=== PATIENT | male | born 1975 | race Caucasian/White ===

== ENCOUNTER → 2018-06-07 09:05 | Outpatient (CLI) | payer OTHER, SELFPAY ==
--- NOTE | 2018-06-07 | DI.ECHO.S_ITS ---
[facility] +---------+ : : [address] : : : : [id number] : : : : Phone: [phone]+ Echocardiogram Report + + :Name: ALIE LIMA Study Date: 06/07/2018 Height: 67 in : :[facility] Weight: 186 lb : : Gender: Male BSA: 2.0 m2 : :: 1975 Age: 42 yrs BP: 140/70 mmHg: :Reason For Study: QTC : : Performed By: Chelsea Smith : :Referring: MARCY ZAVALETA : + + Interpretation Summary Patient has dextrocardia and situs inversus. 1) Normal left ventricular size, wall motion, and systolic function (EF 55- 60%). 2) Grossly, normal right ventricular size and function. 3) No significant valvular abnormalities. 4) No prior Echo available for cmparison. Procedure: A two-dimensional transthoracic echocardiogram with color flow and Doppler was performed. The study quality was technically adequate. There is no prior echocardiogram noted for this patient. The patient was in normal sinus rhythm during the exam. Left Ventricle: The left ventricle is normal in size, wall thickness, and systolic function without any focal wall motion abnormalities. The ejection fraction is estimated to be 55-60%. Diastolic parameters suggest probable normal left ventricular diastolic function and normal filling pressures. Right Ventricle: The right ventricle grossly appears normal in size with probable normal systolic function. Atria: The left atrial size is normal. Right atrial size is normal. Mitral Valve: The mitral valve is normal in structure and function. There is no mitral regurgitation noted. Aortic Valve: The aortic valve opens well. Aortic valve is not well visualized to know whether it is trileaflet. There is no aortic valve stenosis. No aortic regurgitation is present. Tricuspid Valve: The tricuspid valve is normal in structure and function. No tricuspid regurgitation. Pulmonic Valve: The pulmonic valve is not well seen, but is grossly normal. There is a trace or physiologic amount of pulmonic regurgitation. Great Vessels: The aortic root is normal size. The dimensions of the ascending aorta are normal. The aortic arch is normal in size. The IVC is of normal diameter and collapses greater than 50% with a sniff. This suggests a low right atrial pressure of 3 mm Hg. Pericardium/ Pleura There is no pericardial effusion. There is no pleural effusion. MMode/2D Measurements & Calculations LVIDd: 4.5 cm Ao root diam: 3.4 cm LVIDs: 3.2 cm Aortic Jxn: 2.7 cm FS: 29.4 % asc Aorta Diam: 2.9 cm EPSS: 0.83 cm Ao Arch Diam (Prox Trans): 2.8 cm IVSd: 0.92 cm LVPWd: 0.84 cm LV garibay. diameter/BSA (cm/m^2): 2.3 LV sys. diameter/BSA (cm/m^2): 1.6 LA dimension: 3.6 cm RA long axis: 4.4 cm LA A2 area: 17.0 cm2 RA area: 15.6 cm2 LA A4 area: 18.0 cm2 RA vol: 46.6 ml RA : 23.8 ml/m2 IVC diam: 1.2 cm RVDd major: 5.3 cm RVD1 (basal): 3.9 cm RVD2 (mid): 3.3 cm Doppler Measurements & Calculations Ao V2 max: 152.2 cm/sec MV E max wisam: 82.5 cm/sec Ao V2 mean: 94.0 cm/sec MV A max wisam: 61.5 cm/sec Ao max P.3 mmHg MV E/A: 1.3 Ao mean P.4 mmHg Med Peak E' Wisam: 8.8 cm/sec Ao V2 VTI: 31.8 cm E/E' med: 9.3 Lat Peak E' Wisam: 15.2 cm/sec E/E' lat: 5.4 E/e' average: 7.4 MV dec time: 0.22 sec MV P1/2t: 65.4 msec PA V2 max: 105.8 cm/sec MV P1/2t max wisam: 82.1 cm/sec PA V2 mean: 68.1 cm/sec MVA(P1/2t): 3.4 cm2 PA mean P.1 mmHg PA Accel Time: 0.15 sec Reading Physician:10:05 AM
== END ==
PROVIDERS: Visit Provider Physician Assistant
DX: I45.81 Long QT syndrome (principal); R00.2 Palpitations
CPT/HCPCS: 93306

== ENCOUNTER 2020-09-28 10:17 | Emergency (ER) | payer OTHER, SELFPAY ==
[2020-09-28 10:30] VITALS: BP 144/76; PULSE 77; RESP 14; TEMP 36.2; O2SAT 99; BMI 29.0
--- NOTE | 2020-09-28 11:25 | DI.RAD.S_ITS ---
PROCEDURE: XR LUMBAR SPINE 2-3V INDICATIONS: low back pain TECHNIQUE: 3 views of the lumbar spine were acquired. COMPARISON: None. FINDINGS: Bones: 5 [id number] vertebrae are present. There is normal bony alignment. No vertebral body compression fractures. No suspicious bony lesions. Degenerative changes are present noting [id number] foraminal narrowing at L4-5 and L5-S1. Soft tissues: Overlying bowel gas pattern is normal. No suspicious soft tissue calcifications. IMPRESSION: Degenerative changes as above. Dictated by: Stacey Guzman M.D. on 09/28/2020 at 11:44 Approved by: Stacey Guzman M.D. on 09/28/2020 at 11:46
--- NOTE | 2020-09-28 14:28 | ED.BACK ---
HPI - Back Pain/Injury General Chief Complaint: Back Pain/Injury Stated Complaint: Back pain Time Seen by Provider: 09/28/20 14:28 Source: patient Limitations: no limitations History of Present Illness HPI Narrative: This is a 45-year-old male comes to the emergency department complaint of low back pain. Patient states he had bent over this morning about 6:00 a.m. to put his socks when he felt sudden pain as he was sitting back up straight. Patient states a little bit more on the left but is on both sides. Depending on his positioning patient does sometimes have some tingling down his leg particularly on the left. He denies any weakness. No loss of bowel or bladder control. No fevers or chills. He has not had significant symptoms similar in the past but has had some very mild symptoms before. He denies any daily medications. He denies any prior back or other surgeries. He states he is allergic to potassium and no other medications. He does not have an exact primary care but gets [facility] medical care [facility] [employer] Related Data Previous Rx's Medication Instructions Recorded diazepam [Valium] 10 mg PO TID PRN #10 tab 09/28/20 meloxicam 7.5 mg PO BID PRN #20 tab 09/28/20 Allergies Allergy/AdvReac Type Severity Reaction Status Date / Time potassium Allergy Verified 09/28/20 10:33 Review of Systems Review of Systems ROS Unobtainable: All systems reviewed & are unremarkable except as noted in HPI and below Patient History Social History Smoking Status: Current every day smoker Smoking Status: Current every day smoker alcohol intake frequency: a few times a week Substance Use Type: marijuana Exam Narrative Exam Narrative: GENERAL: Alert and oriented x three, well-nourished male in moderate distress. Patient is lying on his left stated on during examination. HEENT: Head normocephalic, atraumatic, EOMI, pupils reactive, face symmetric, moist mucous membranes NECK: Supple, full range of motion CARDIOVASCULAR: Regular rate and rhythm without murmurs, rubs or gallops. RESPIRATORY: Breath sounds equal bilaterally, no wheezes rales or rhonchi. ABDOMEN: Soft, nontender. Normoactive bowel sounds all 4 quadrants. No guarding or rebound, rigidity, no mass : No CVA tenderness BACK: No cervical, thoracic or lumbar vertebral point tenderness, except L4-L5. Patient has decreased range of motion. Patient's gait is [antalgic/normal]. Rectal exam is deferred. Muscle strength is 5/5 in lower extremities, Dorsalis pedis and tibialis pulses are 2+ and lower extremities. Sensation is intact in the lower extremities. EXTREMITIES: Normal range of motion, no clubbing or edema. Neurovascularly intact NEUROLOGICAL: Cranial nerves II through XII grossly intact. Moving all extremities SKIN: Warm, dry, no petechiae, no rashes or lesions. Initial Vital Signs Initial Vital Signs: Vital Signs Temperature 97.2 F L 09/28/20 10:30 Pulse Rate 77 09/28/20 10:30 Respiratory Rate 14 09/28/20 10:30 Blood Pressure 144/76 H 09/28/20 10:30 Pulse Oximetry 99 09/28/20 10:30 Course Orders Ordered: ED Orders 09/28/20 11:25 XR LSPINE 2-3 views [XR lumbar spine 2-3V] Stat Discontinued Medications Diazepam (Diazepam 5 Mg Tablet) 10 mg PO NOW ONE Stop: 09/28/20 14:45 Last Admin: 09/28/20 15:05 Dose: 10 mg Documented by: CHIO Ketorolac Tromethamine (Ketorolac 30 Mg/Ml Vial) 30 mg IM NOW ONE Stop: 09/28/20 14:45 Last Admin: 09/28/20 15:05 Dose: 30 mg Documented by: CHIO Vital Signs Vital signs: Vital Signs - 8 hr 09/28/20 10:30 Temperature 97.2 F L Pulse Rate 77 Respiratory Rate 14 Blood Pressure 144/76 H Pulse Oximetry 99 MDM - Back Pain/Injury Imaging Data Lspine xray: Radiologist's Impression: [address] [id number] ReportSigned Patient: Con [address] [facility]#: [id number]: 1975Acct:[id number]/Sex: 45 / MDate of Service: 09/28/20Loc: EDAccession Number: [id number] Procedure: XR lumbar spine 2-3V Ordering Provider: Umm Hassan D.O. PROCEDURE: XR LUMBAR SPINE 2-3V INDICATIONS: low back pain TECHNIQUE: 3 views of the lumbar spine were acquired. COMPARISON: None. FINDINGS: Bones: 5 mlu-jss-kifujkz vertebrae are present. There is normal bony alignment. No vertebral body compression fractures. No suspicious bony lesions. Degenerative changes are present noting [id number] foraminal narrowing at L4-5 and L5-S1. Soft tissues: Overlying bowel gas pattern is normal. No suspicious soft tissue calcifications. IMPRESSION: Degenerative changes as above. Dictated by: Stacey Guzman M.D. on 09/28/2020 at 11:44 Approved by: Stacey Guzman M.D. on 09/28/2020 at 11:46 MDM Narrative Medical decision making narrative: 45-year-old male with low back pain with no red flag symptoms. Patient's x-ray shows degenerative changes but no other acute changes. Plan for pain control, follow up with primary care. Risk precautions were discussed. Discharge Plan Departure Patient Disposition: Home Clinical Impression: Low back pain Instructions: DI for Low Back Pain Activity Restrictions/Additional Instructions: Follow-up with your physician next week for recheck if your symptoms are not improving. Prescription to [facility] pharmacy. Take pain medication as prescribed. Take muscle relaxer every 8 hours as needed. This medication can make you sleepy do not drive, perform hazardous activities or make any major decisions while taking it. Please return for fevers, rapidly worsening or intractable back pain, new weakness, loss of sensation, inability to move your extremity, loss of bowel or bladder control, passing out or other new or concerning symptoms. Prescriptions: New meloxicam 7.5 mg tablet 7.5 mg PO BID PRN (Reason: pain) Qty: 20 RF: 0 diazepam [Valium] 10 mg tablet 10 mg PO TID PRN (Reason: muscle spasm) Qty: 10 RF: 0 Stand Alone Forms: Work Release Note
[2020-09-28] MEDS: KETOROLAC 30 MG/ML VIAL IM (15:05)
[2020-09-28] MEDS: diazePAM 5 MG TABLET 10 MG PO (15:05)
== END 2020-09-28 15:31 | disposition home or self-care (01) ==
PROVIDERS: Emergency Provider Emergency Medicine
DX: M54.5 Low back pain (principal)
CPT/HCPCS: 72100; 96372; 99283; 99284; J1885

== ENCOUNTER → 2021-09-11 11:05 | Outpatient (CLI) | payer OTHER, SELFPAY ==
--- NOTE | 2021-09-11 11:07 | DI.RAD.S_ITS ---
PROCEDURE: XR FINGER LT MIN 2V INDICATIONS: L 3rd finger tip TECHNIQUE: AP hand, 2 views of the left 3rd finger(s) acquired. COMPARISON: None. FINDINGS: Bones: No fractures or dislocations. No suspicious bony lesions. Soft tissues: No suspicious soft tissue calcifications. IMPRESSION: No fracture. No osseous lesion. If symptoms and/or clinical suspicion for pathology persists, further assessment with repeat radiographs (7-10 days) or advanced imaging (e.g. CT, MRI or bone scan) should be considered. Dictated by: Fatoumata Dean MD, PhD on 09/11/2021 at 12:27 Approved by: Fatoumata Dean MD, PhD on 09/11/2021 at 12:27
== END ==
PROVIDERS: Referring Provider Nurse Practitioner; Visit Provider Nurse Practitioner
DX: S69.92XA Unspecified injury of left wrist, hand and finger(s), initial encounter (principal)
CPT/HCPCS: 73140

== ENCOUNTER 2022-10-20 12:31 | Emergency (ER) | payer OTHER, SELFPAY ==
[2022-10-20 12:34] VITALS: BP 158/85; PULSE 65; RESP 16; TEMP 36.2; O2SAT 99; BMI 29.7
--- NOTE | 2022-10-20 13:03 | ED_ITS ---
HPI - Back Pain/Injury <India Winston PA-C - Last Filed: 10/20/22 14:43> General Chief Complaint: Back Pain/Injury Stated Complaint: lower back pain Time Seen by Provider: 10/20/22 12:54 History of Present Illness HPI Narrative: 47-year-old male with pre-existing back pain presents to the ED with an acute exacerbation of left-sided lower back pain after opening a door this morning. Patient states that he openly very light door, felt a spasm in his back after a nd has since been very painful. Pain is aggravated with movement and standing up. Patient denies numbness, tingling, weakness, saddle paresthesias, urinary hesitancy, urinary incontinence, stool incontinence. Patient took 800 mg of ibuprofen at 2 a.m with minimal relief. Patient took a Kylie back and body at 6:00 a.m. with no relief either. Related Data Allergies Allergy/AdvReac Type Severity Reaction Status Date / Time potassium Allergy Verified 09/11/21 10:43 Review of Systems <India Winston PA-C - Last Filed: 10/20/22 14:43> Review of Systems ROS Unobtainable: All systems reviewed & are unremarkable except as noted in HPI and below Constitutional Constitutional: Denies chills, Denies fatigue, Denies fever(s), Denies frequent falls, Denies lethargy and Denies weakness Eyes Eyes: Denies change in vision, Denies eye discharge, Denies irritation and Denies loss of vision ENT Ears, Nose, Mouth, and Throat: Denies change in voice, Denies dizziness, Denies neck pain, Denies sore throat and Denies throat swelling Cardiovascular Cardiovascular: Denies chest pain, Denies irregular heart rhythm, Denies lightheadedness, Denies palpitations, Denies dyspnea, Denies dyspnea on exertion and Denies orthopnea Respiratory Respiratory: Denies cough, Denies dyspnea, Denies dyspnea on exertion and Denies wheezing Gastrointestinal Gastrointestinal: Denies abdominal pain, Denies change in bowel habits, Denies diarrhea, Denies nausea and Denies vomiting Genitourinary Genitourinary: Denies hematuria, Denies flank pain, Denies urinary incontinence and Denies urinary urgency Musculoskeletal Musculoskeletal: Denies back pain, Denies muscle weakness, Denies neck pain, Denies numbness and Denies tingling Comments: Left-sided lower back pain. Integumentary/Breasts Skin/Breast: Denies pruritus, Denies erythema, Denies rash and Denies wounds Neurologic Neurologic: Denies behavioral changes, Denies confusion, Denies dizziness, Denies frequent falls, Denies loss of vision, Denies numbness, Denies tingling and Denies weakness Psychiatric Psychiatric: Denies anxiety, Denies behavioral changes, Denies confusion, Denies depression, Denies homicidal ideation and Denies suicidal ideation Endocrine Endocrine: Denies fatigue, Denies flushing and Denies palpitations Hematologic/Lymphatic Hematologic/Lymphatic: Denies easy bruising Allergic/Immunologic Allergic/Immunologic: Denies urticaria, Denies throat swelling and Denies wheezing Patient History <India Winston PA-C - Last Filed: 10/20/22 14:43> Social History Smoking Status: Current every day smoker Smoking Status: Current every day smoker alcohol intake frequency: a few times a week Substance Use Type: marijuana Exam <India Winston PA-C - Last Filed: 10/20/22 14:43> Narrative Exam Narrative: Const General:?cooperative, healthy appearing and comfortable [facility] Head:?normal to inspection Ears:?hearing grossly normal bilaterally Nose:?external nose normal Face and sinus:?normal facial exam and sinuses nontender Mouth:?oral mucosae normal Throat:?posterior oropharynx normal Eyes General:?appearance normal, both eyes and all related structures Neck Neck:?normal visual inspection and no lymphadenopathy noted Resp Effort & Inspection:?normal respiratory effort Auscultation:?clear to auscultation bilaterally Cardio Rate:?regular rate Rhythm:?regular rhythm Musculoskeletal No midline tenderness to palpation. No paraspinal tenderness to palpation. There is full range of motion. Strength and sensation is intact. Patient is neurovascularly intact. Neuro General:?patient alert, patient awake and patient oriented x3 Initial Vital Signs Initial Vital Signs: Vital Signs Temperature 97.2 F L 10/20/22 12:34 Pulse Rate 65 10/20/22 12:34 Respiratory Rate 16 10/20/22 12:34 Blood Pressure 158/85 H 10/20/22 12:34 Pulse Oximetry 99 10/20/22 12:34 Oxygen Delivery Method Room Air 10/20/22 12:34 <Antoinette Anguiano DO - Last Filed: 10/21/22 08:40> Initial Vital Signs Initial Vital Signs: Vital Signs Temperature 97.2 F L 10/20/22 12:34 Pulse Rate 65 10/20/22 12:34 Respiratory Rate 16 10/20/22 12:34 Blood Pressure 158/85 H 10/20/22 12:34 Pulse Oximetry 99 10/20/22 12:34 Oxygen Delivery Method Room Air 10/20/22 12:34 Course <India Winston PA-C - Last Filed: 10/20/22 14:43> Orders Ordered: Discontinued Medications Cyclobenzaprine HCl (Cyclobenzaprine 10 Mg Tablet) 10 mg PO NOW ONE Stop: 10/20/22 12:59 Last Admin: 10/20/22 13:06 Dose: 10 mg Documented By: LINDA Ketorolac Tromethamine (Ketorolac 30 Mg/Ml Vial) 30 mg IM NOW ONE Stop: 10/20/22 12:59 Last Admin: 10/20/22 13:07 Dose: Not Given Documented By: LINDA Lidocaine (Lidocaine Patch 1 Each Adh..Patch) 1 each TOP NOW ONE Stop: 10/20/22 12:59 Last Admin: 10/20/22 13:06 Dose: 1 each Documented By: LINDA Vital Signs Vital signs: Vital Signs - 8 hr 10/20/22 12:34 Temperature 97.2 F L Pulse Rate 65 Respiratory Rate 16 Blood Pressure 158/85 H Pulse Oximetry 99 Oxygen Delivery Method Room Air <Antoinette Anguiano DO - Last Filed: 10/21/22 08:40> Orders Ordered: Discontinued Medications Cyclobenzaprine HCl (Cyclobenzaprine 10 Mg Tablet) 10 mg PO NOW ONE Stop: 10/20/22 12:59 Last Admin: 10/20/22 13:06 Dose: 10 mg Documented By: LINDA Ketorolac Tromethamine (Ketorolac 30 Mg/Ml Vial) 30 mg IM NOW ONE Stop: 10/20/22 12:59 Last Admin: 10/20/22 13:07 Dose: Not Given Documented By: LINDA Lidocaine (Lidocaine Patch 1 Each Adh..Patch) 1 each TOP NOW ONE Stop: 10/20/22 12:59 Last Admin: 10/20/22 13:06 Dose: 1 each Documented By: LINDA Vital Signs Vital signs: Vital Signs - 8 hr 10/20/22 12:34 Temperature 97.2 F L Pulse Rate 65 Respiratory Rate 16 Blood Pressure 158/85 H Pulse Oximetry 99 Oxygen Delivery Method Room Air MDM - Back Pain/Injury <India Winston PA-C - Last Filed: 10/20/22 14:43> MDM Narrative Medical decision making narrative: 47-year-old male with pre-existing back pain presents to the ED with an acute exacerbation of left-sided lower back pain after opening a door this morning. No midline or paraspinal tenderness to palpation. No red flag symptoms. Patient's symptoms most consistent with a musculoskeletal sprain/strain of the lower back vs herniated disc. Will treat with ketorolac, Flexeril, lidocaine patch. Patient declined ketorolac. Lidocaine patch was applied and Flexeril given with some relief. Patient agrees to continue the lidocaine patches and apply heat packs. Recommend follow-up with PCP. ED return precautions were discussed with patient. Patient verbalized understanding. Discharge Plan Departure Patient Disposition: Home Clinical Impression: Low back pain Instructions: DI for Low Back Pain Activity Restrictions/Additional Instructions: You were evaluated in the ED today for lower back pain. Your symptoms are most likely due to a musculoskeletal sprain/strain. You may continue applying lidocaine patches, applying heat packs. You may take Tylenol or ibuprofen for pain. Please follow-up with your primary care doctor in 2 or 3 days. Return to the ED if you have worsening symptoms, numbness, tingling, weakness, urinary difficulties. Referrals: ProviderMontserrat [Primary Care Provider] - Stand Alone Forms: Patient Portal/API <Antoinette Anguiano DO - Last Filed: 10/21/22 08:40> Cosign ED Attending Renuka Attestation: I was immediately available in the department for consultation. Documentation has been reviewed.
[2022-10-20] MEDS: CYCLOBENZAPRINE 10 MG TABLET PO (13:06)
[2022-10-20] MEDS: LIDOCAINE PATCH 1 EACH ADH..PATCH TOP (13:06)
== END 2022-10-20 14:07 | disposition home or self-care (01) ==
PROVIDERS: Emergency Provider Student in an Organized Health Care Education/Training Program
DX: M54.50 Low back pain, unspecified (principal)
CPT/HCPCS: 99283

== ENCOUNTER 2022-10-31 15:30 | Emergency (ER) | payer OTHER, SELFPAY ==
[2022-10-31 15:52] VITALS: BP 186/94; PULSE 70; RESP 18; TEMP 37.2; O2SAT 99; BMI 29.0
--- NOTE | 2022-10-31 16:06 | ED.DENTAL ---
HPI - Dental/Oral <PAULINE Spears - Last Filed: 10/31/22 16:23> General Chief complaint: Dental/Oral Stated complaint: Facial swelling Time Seen by Provider: 10/31/22 15:58 Source: patient Mode of arrival: Ambulatory History of Present Illness HPI Narrative: This is a 47-year-old male who presents to the emergency department with a right front tooth infection, states that he thinks there is an abscess that is deep and has been painful and getting worse over the last few days. Has an upcoming dentist appointment on November 11 but states that his dental clinic is closed until then. He denies fever chills, denies nausea vomiting, denies headache or other symptoms of illness. He states that when he walked from triage to the room, he had an episode of chills and now is starting to feel poorly. His drove him here today. Related Data Previous Rx's Medication Instructions Recorded amoxicillin 875 mg-potassium 1 tab PO BID 10 days #20 tabs 10/31/22 clavulanate 125 mg tablet chlorhexidine gluconate 0.12 % 15 ml buccal DAILY #118 mL 10/31/22 mouthwash hydrocodone 5 mg-acetaminophen 325 1 tab PO Q6H PRN pain #12 tabs 10/31/22 mg tablet ibuprofen 600 mg tablet 600 mg PO Q6H PRN fever or pain 10/31/22 #30 tabs Allergies Allergy/AdvReac Type Severity Reaction Status Date / Time potassium Allergy Verified 10/31/22 15:52 Review of Systems <PAULINE pSears - Last Filed: 10/31/22 16:23> Review of Systems ROS Unobtainable: All systems reviewed & are unremarkable except as noted in HPI and below Patient History <PAULINE Spears - Last Filed: 10/31/22 16:23> Social History Smoking Status: Current every day smoker Smoking Status: Current every day smoker alcohol intake frequency: a few times a week Substance Use Type: marijuana Exam <PAULINE Spears - Last Filed: 10/31/22 16:23> Narrative Exam Narrative: Reviewed vitals signs and nursing notes. General: Pleasant, sitting upright, appears uncomfortable, well groomed, afebrile HEENT: symmetrical facial expressions, moist mucous membranes, neck is supple, right front incisor has tenderness to palpation, no visible fracture or decay gingival edema and tenderness to palpation, mild opaque drainage that is serosanguineous coming from gum, this was obtained for a wound culture and is pending. Skin: brisk capillary refill, without rash or wound Neuro: clear speech and normal cognition, A&O x3, GCS 15, no focal motor or sensation deficits Initial Vital Signs Initial Vital Signs: Vital Signs Temperature 99.0 F 10/31/22 15:52 Pulse Rate 70 10/31/22 15:52 Respiratory Rate 18 10/31/22 15:52 Blood Pressure 186/94 H 10/31/22 15:52 Pulse Oximetry 99 10/31/22 15:52 Oxygen Delivery Method Room Air 10/31/22 15:52 <Arvind Mijares DO - Last Filed: 11/01/22 20:07> Initial Vital Signs Initial Vital Signs: Vital Signs Temperature 99.0 F 10/31/22 15:52 Pulse Rate 70 10/31/22 15:52 Respiratory Rate 18 10/31/22 15:52 Blood Pressure 186/94 H 10/31/22 15:52 Pulse Oximetry 99 10/31/22 15:52 Oxygen Delivery Method Room Air 10/31/22 15:52 Course <PAULINE Spears - Last Filed: 10/31/22 16:23> Orders Ordered: Discontinued Medications Hydrocodone Bitart/Acetaminophen (Hydrocodone/Acet 5/325 Tablet) 1 tab PO NOW ONE Stop: 10/31/22 15:59 Last Admin: 10/31/22 16:09 Dose: 1 tab Documented By: JARED Amoxicillin/Clavulanate Potassium (Amoxicillin/Clav 875/125 Mg) 1 tab PO NOW ONE Stop: 10/31/22 15:59 Last Admin: 10/31/22 16:09 Dose: 1 tab Documented By: JARED Ketorolac Tromethamine (Ketorolac 10 Mg Tablet) 10 mg PO NOW ONE Stop: 10/31/22 15:59 Last Admin: 10/31/22 16:10 Dose: 10 mg Documented By: JARED Vital Signs Vital signs: Vital Signs - 8 hr 10/31/22 15:52 Temperature 99.0 F Pulse Rate 70 Respiratory Rate 18 Blood Pressure 186/94 H Pulse Oximetry 99 Oxygen Delivery Method Room Air <Arvind Mijares DO - Last Filed: 11/01/22 20:07> Orders Ordered: Discontinued Medications Hydrocodone Bitart/Acetaminophen (Hydrocodone/Acet 5/325 Tablet) 1 tab PO NOW ONE Stop: 10/31/22 15:59 Last Admin: 10/31/22 16:09 Dose: 1 tab Documented By: JARED Amoxicillin/Clavulanate Potassium (Amoxicillin/Clav 875/125 Mg) 1 tab PO NOW ONE Stop: 10/31/22 15:59 Last Admin: 10/31/22 16:09 Dose: 1 tab Documented By: JARED Ketorolac Tromethamine (Ketorolac 10 Mg Tablet) 10 mg PO NOW ONE Stop: 10/31/22 15:59 Last Admin: 10/31/22 16:10 Dose: 10 mg Documented By: JARED Vital Signs Vital signs: Vital Signs - 8 hr 10/31/22 15:52 Temperature 99.0 F Pulse Rate 70 Respiratory Rate 18 Blood Pressure 186/94 H Pulse Oximetry 99 Oxygen Delivery Method Room Air MDM - Dental/Oral <PAULINE Spears - Last Filed: 10/31/22 16:23> MDM Narrative Medical decision making narrative: Chief complaint: Dental Patient presents for dental pain due to suspected dental abscess Patient has history dental decay, They deny anterior cervical lymphadenopathy, fever, chills, nausea and vomiting. Independent historian: Patient Differential diagnoses include: Deep neck space infection, RPA, [employer], Isai?s angina, periapical abscess, pulpitis, gingivitis, necrotizing ulcerative gingivitis/Vincent's angina, periodontitis, dental infection Wound culture pain is there is mild amount of drainage coming from the gingiva without fluctuance or discernible abscess Plan and course of care: He is currently distress and there is no suspicion for deep neck space infection, he is without anterior cervical lymphadenopathy or airway compromise, difficulty swallowing, rigid neck, meningeal signs, or acute fever, however he did just start having chills. He does not appear dehydrated. No recent facial trauma, no changes to vision, dysphonia, dysphagia or concern for drug reaction. Pain was treated with toradol and hydrocodone for pain, augmentin for infection. Patient discharged home and will follow up with dentist. Given contact information for [facility] for dental extraction and further care. Discussed return precautions for odontogenic infections and other dental pain emergencies. Encouraged him to stay hydrated, return for inability to tolerate p.o., difficulty swallowing or breathing, worsening fever and chills or other concerning symptom. Patient is appropriate and amenable to discharge home. Vital signs are stable on repeat examination is unremarkable. All questions and concerns answered at this time. Discharge Plan Departure Patient Disposition: Home Clinical Impression: Dental infection Instructions: Tooth Abscess Activity Restrictions/Additional Instructions: *You have been diagnosed with a dental infection. Below are 3 low-cost dental clinics for intervention if you can not wait. Hopefully this antibiotic will help calm things down, I think there was a bit of drainage coming from the gum and this was cultured, we will call you if we need to change this antibiotic. If you have significant worsening over the next 24 hours, please come back to the department. Please take at least 3 doses of this medication over the next 24 hours before coming back unless you have shortness of breath, severe worsening, started vomiting with fever or other. This tooth will likely need extraction if there is a large infectious pocket of pus above root of the tooth. This poses a risk to your heart health if the infection extends into the bloodstream. I think that we have stopped it thus far, I hope the you feel better soon, please come back if you do not and get into see your dentist as soon as possible. [facility] [address] [place] [address] Open ? Closes 5PM [facility] [id number] [place] [address] [address], [place] [address] Closed from 12p-1p [facility] [address] [place] [address] Appointments: [place] *What to do: *Please continue to take your regular medications as directed. [ x] New medication prescriptions sent to your pharmacy: [[facility] ] [ ] New medication written as a paper prescription [ ] No new medications given *Please call and schedule follow up with your primary care provider in 2-3 days, at least for an update. Let them know you were seen in the Emergency Department for the above problem. We will electronically transmit a record of today's note if your PCP or specialist is in our system. *If you do not have a primary care provider please contact [phone] to establish care with one of the [facility] primary care providers. *Return to the Emergency Department for worsening symptoms, inability to keep liquids down, fever greater than 101F, chills, or other concerning symptom. Prescriptions: New amoxicillin-pot clavulanate 875-125 mg tablet 1 tab PO BID 10 Days Qty: 20 0RF hydrocodone-acetaminophen 5-325 mg tablet 1 tab PO Q6H PRN (Reason: pain) Qty: 12 0RF chlorhexidine gluconate 0.12 % mouthwash 15 ml buccal DAILY Qty: 118 0RF Rx Instructions: swish and spit ibuprofen 600 mg tablet 600 mg PO Q6H PRN (Reason: fever or pain) Qty: 30 0RF Referrals: ProviderMontserrat [Primary Care Provider] - Stand Alone Forms: Patient Portal/API <Arvind Mijares DO - Last Filed: 11/01/22 20:07> Cosign ED Attending Abelature Attestation: I was immediately available in the department for consultation. Documentation has been reviewed. I agree with assessment and plan.
[2022-10-31] MEDS: HYDROCODONE/ACET 5/325 TABLET 1 TAB PO (16:09)
[2022-10-31] MEDS: AMOXICILLIN/CLAV 875/125 MG 1 TAB PO (16:09)
[2022-10-31] MEDS: KETOROLAC 10 MG TABLET PO (16:10)
--- NOTE | 2022-10-31 16:46 | PC.NURSE ---
Right upper teeth pain with right cheek swelling.
== END 2022-10-31 16:47 | disposition home or self-care (01) ==
PROVIDERS: Emergency Provider Nurse Practitioner Critical Care Medicine
DX: K04.7 Periapical abscess without sinus (principal)
CPT/HCPCS: 87070; 87075; 87205; 99283

== ENCOUNTER 2023-06-24 16:40 | Emergency (ER) | payer OTHER, SELFPAY ==
[2023-06-24 16:44] VITALS: BP 165/81; PULSE 76; RESP 16; TEMP 37.1; O2SAT 98; BMI 29.7
--- NOTE | 2023-06-24 18:48 | ED.SKABFB ---
HPI - Skin/Abscess/Foreign Bdy <Terese Meza PA-C - Last Filed: 06/24/23 19:01> General Chief complaint: Skin/Abscess/Foreign Body Stated complaint: unexplained rashes showing up Time Seen by Provider: 06/24/23 16:54 Source: patient Mode of arrival: Ambulatory Limitations: no limitations History of Present Illness HPI narrative: Patient is a 47-year-old male who presents due to skin rash. He reports that he has had these red itchy lesions on his bilateral lower legs for at least 3 weeks, maybe longer. He denies any exposure to new foods, detergents, soaps, clothes, pets, travel. The lesions are red. They do not seem to be getting better or worse. He is tried logo-deq-uumcenk hydrocortisone cream and taking Benadryl, neither which seems to help much. He reports no health history but admits not going to the doctor very often. Over the past 1-2 weeks, the rash has spread to his bilateral flanks and starting to spread over his bilateral arms. He denies fever or chills, intentional weight loss, respiratory symptoms, easy bleeding or bruising. Related Data Previous Rx's Medication Instructions Recorded chlorhexidine gluconate 0.12 % 15 ml buccal DAILY #118 mL 10/31/22 mouthwash hydrocodone 5 mg-acetaminophen 325 1 tab PO Q6H PRN pain #12 tabs 10/31/22 mg tablet ibuprofen 600 mg tablet 600 mg PO Q6H PRN fever or pain 10/31/22 #30 tabs prednisone 20 mg tablet 40 mg (2 x 20 mg) PO DAILY #8 tabs 06/24/23 triamcinolone acetonide 0.5 % 1 applic topical BID #15 grams 06/24/23 topical cream Allergies Allergy/AdvReac Type Severity Reaction Status Date / Time potassium Allergy Verified 06/24/23 16:44 Review of Systems <Terese Meza PA-C - Last Filed: 06/24/23 19:01> Review of Systems ROS Unobtainable: All systems reviewed & are unremarkable except as noted in HPI and below Patient History <Terese Meza PA-C - Last Filed: 06/24/23 19:01> Social History Smoking Status: Current every day smoker Smoking Status: Current every day smoker tobacco type: e-cigarettes alcohol intake frequency: a few times a week Substance Use Type: marijuana Exam <Terese Meza PA-C - Last Filed: 06/24/23 19:01> Narrative Exam Narrative: GENERAL: 47 year old patient appears stated age. Well-developed patient, in no acute distress. NEURO: AOx3. HEAD: Atraumatic. Normocephalic. EYES: Pupils equal round and reactive. Extraocular motions intact. No scleral icterus. No injection or drainage. ENT: Nose without bleeding or purulent drainage. Airway patent. RESPIRATORY: No increased work of breathing EXTREMITIES: No edema or joint tenderness. SKIN: Patches of erythematous maculopapular rash over lower extremities, bilateral flanks. Scattered lesions on bilateral arms. No vesicles. No underlying cellulitis. Initial Vital Signs Initial Vital Signs: Vital Signs Temperature 98.7 F 06/24/23 16:44 Pulse Rate 76 06/24/23 16:44 Respiratory Rate 16 06/24/23 16:44 Blood Pressure 165/81 H 06/24/23 16:44 Pulse Oximetry 98 06/24/23 16:44 Oxygen Delivery Method Room Air 06/24/23 16:44 <Elizabeth Pitt MD - Last Filed: 06/25/23 08:00> Initial Vital Signs Initial Vital Signs: Vital Signs Temperature 98.7 F 06/24/23 16:44 Pulse Rate 76 06/24/23 16:44 Respiratory Rate 16 06/24/23 16:44 Blood Pressure 165/81 H 06/24/23 16:44 Pulse Oximetry 98 06/24/23 16:44 Oxygen Delivery Method Room Air 06/24/23 16:44 Course <Terese Meza PA-C - Last Filed: 06/24/23 19:01> Vital Signs Vital signs: Vital Signs - 8 hr 06/24/23 16:44 Temperature 98.7 F Pulse Rate 76 Respiratory Rate 16 Blood Pressure 165/81 H Pulse Oximetry 98 Oxygen Delivery Method Room Air <Elizabeth Pitt MD - Last Filed: 06/25/23 08:00> Vital Signs Vital signs: Vital Signs - 8 hr 06/24/23 16:44 Temperature 98.7 F Pulse Rate 76 Respiratory Rate 16 Blood Pressure 165/81 H Pulse Oximetry 98 Oxygen Delivery Method Room Air MDM - Skin/Abscess/Foreign Bdy <Terese Meza PA-C - Last Filed: 06/24/23 19:01> [facility] Narrative Medical decision making narrative: Multiple etiologies for patient's symptoms considered including, but not limited to: Contact dermatitis, other skin pathology. Discussed empiric treatment of rash with patient who is agreeable to trying an albf-hqv-[id number] nonsedating antihistamine, oral steroids and topical steroids. I advised him that if this does not resolve the rash in 1 week, he should go to Dermatology. He is agreeable to this and states understanding of the instructions. He has no systemic symptoms such as fever, chills, weight loss, bruising or bleeding to indicate a more significant underlying disease process. Patient's symptoms improved over duration of stay with above-stated therapies. Findings and discharge diagnosis discussed with patient/family followed by verbalization of understanding Return precautions discussed with patient/family whom verbalize understanding of diagnosis and plan Discharge Plan Departure Patient Disposition: Home Clinical Impression: Rash/skin eruption Instructions: DI for Atopic Dermatitis-Adult Activity Restrictions/Additional Instructions: *You have been diagnosed with pruritic rash. There is no evidence of cellulitis. I would advised taking an hdiq-pqh-gfcqkac antihistamine such as zyrtec every day plus an oral steroid plus prescription ointment. If the rash is not resolved with 7 days of therapy, I would ask for PCP for a referral to dermatology. *What to do: *Please continue to take your regular medications as directed. [x] New medication prescriptions sent to your pharmacy: [ [facility] ] [ ] New medication written as a paper prescription [ ] No new medications given *Please follow up with your primary care provider in 2-3 days, call for an appointment. Let them know you were seen in the Emergency Department and that we ask that you be seen in follow up. We will electronically transmit a record of today's note if your PCP is in our system *If you do not have a primary care provider please contact the [facility] Resource line at [phone]. They will ask some questions about your medical history and help get you set up with a doctor in the community. *Return to Emergency Department if you should have any new, worsening or concerning symptoms, such as [fever greater than 101 F, shaking chills, worsening pain, persistent vomiting or other concerning symptoms]. Prescriptions: New prednisone 20 mg tablet 40 mg PO DAILY Qty: 8 0RF triamcinolone acetonide 0.5 % cream 1 applic topical BID Qty: 15 1RF Rx Instructions: to affected areas No Action hydrocodone-acetaminophen 5-325 mg tablet 1 tab PO Q6H PRN (Reason: pain) Qty: 12 0RF chlorhexidine gluconate 0.12 % mouthwash 15 ml buccal DAILY Qty: 118 0RF Rx Instructions: swish and spit ibuprofen 600 mg tablet 600 mg PO Q6H PRN (Reason: fever or pain) Qty: 30 0RF Referrals: Provider,Montserrat MARINO [Primary Care Provider] - Stand Alone Forms: Patient Portal/API ED Sign-out <Elizabeth Pitt MD - Last Filed: 06/25/23 08:00> Cosign ED Attending Coscarmenature Attestation: I was immediately available in the department for consultation throughout this patient's visit. Elizabeth Pitt MD
== END 2023-06-24 17:22 | disposition home or self-care (01) ==
PROVIDERS: Emergency Provider Physician Assistant
DX: R21 Rash and other nonspecific skin eruption (principal)
CPT/HCPCS: 99281; 99282

== ENCOUNTER 2023-09-14 09:35 | Emergency (ER) | payer OTHER, SELFPAY ==
[2023-09-14 10:05] VITALS: BP 139/76; PULSE 70; RESP 16; TEMP 36.6; O2SAT 97; BMI 29.7
--- NOTE | 2023-09-14 10:08 | DI.RAD.S_ITS ---
PROCEDURE: XR FOOT LT MIN 3V INDICATIONS: foot pain TECHNIQUE: 3 views of the foot were acquired. COMPARISON: None. FINDINGS: Bones: No fractures or dislocations. No suspicious bony lesions. Soft tissues: No tibiotalar joint effusion. Achilles tendon appears normal. IMPRESSION: No acute bony abnormality. Dictated by: Woodrow Soto M.D. on 09/14/2023 at 11:01 Approved by: Woodrow Soto M.D. on 09/14/2023 at 11:02
[2023-09-14 12:48] VITALS: BP 138/73; PULSE 56; RESP 16; O2SAT 100
--- NOTE | 2023-09-14 18:38 | ED_ITS ---
HPI - Extremity Injury (Lower) General Chief Complaint: Extremity Injury, Lower Stated Complaint: L Foot Pain Time Seen by Provider: 09/14/23 12:47 Source: patient Mode of arrival: Ambulatory History of Present Illness HPI Narrative: 48-year-old male presents to the ED with 3 weeks of worsening left foot pain. No trauma. Patient does say he has been working nonstop for 27 days and is on his feet all the time at work. Patient also endorses a new pair of shoes, although it is the same brand and style as his previous shoes. Patient complains of pain both on the dorsal surface and plantar surface of the ball of the foot. No numbness, tingling, weakness. Patient is walking with a cane. Related Data Previous Rx's Medication Instructions Recorded chlorhexidine gluconate 0.12 % 15 ml buccal DAILY #118 mL 10/31/22 mouthwash hydrocodone 5 mg-acetaminophen 325 1 tab PO Q6H PRN pain #12 tabs 10/31/22 mg tablet ibuprofen 600 mg tablet 600 mg PO Q6H PRN fever or pain 10/31/22 #30 tabs prednisone 20 mg tablet 40 mg (2 x 20 mg) PO DAILY #8 tabs 06/24/23 triamcinolone acetonide 0.5 % 1 applic topical BID #15 grams 06/24/23 topical cream Allergies Allergy/AdvReac Type Severity Reaction Status Date / Time potassium Allergy Verified 06/24/23 16:44 Review of Systems Constitutional Constitutional: Denies chills, Denies fatigue, Denies fever(s), Denies frequent falls, Denies lethargy and Denies weakness Eyes Eyes: Denies change in vision, Denies eye discharge, Denies irritation and Denies loss of vision ENT Ears, Nose, Mouth, and Throat: Denies change in voice, Denies dizziness, Denies neck pain, Denies sore throat and Denies throat swelling Cardiovascular Cardiovascular: Denies chest pain, Denies irregular heart rhythm, Denies lightheadedness, Denies palpitations, Denies dyspnea, Denies dyspnea on exertion and Denies orthopnea Respiratory Respiratory: Denies cough, Denies dyspnea, Denies dyspnea on exertion and Denies wheezing Gastrointestinal Gastrointestinal: Denies abdominal pain, Denies change in bowel habits, Denies diarrhea, Denies nausea and Denies vomiting Musculoskeletal Musculoskeletal: Denies neck pain and Denies numbness Comments: Left foot pain Integumentary/Breasts Skin/Breast: Denies pruritus, Denies erythema, Denies rash and Denies wounds Neurologic Neurologic: Denies behavioral changes, Denies confusion, Denies dizziness, Denies frequent falls, Denies loss of vision, Denies numbness and Denies weakness Psychiatric Psychiatric: Denies anxiety, Denies behavioral changes, Denies confusion, Denies depression, Denies homicidal ideation and Denies suicidal ideation Endocrine Endocrine: Denies fatigue, Denies flushing and Denies palpitations Hematologic/Lymphatic Hematologic/Lymphatic: Denies easy bruising Allergic/Immunologic Allergic/Immunologic: Denies urticaria, Denies throat swelling and Denies wheezing Patient History Social History Smoking Status: Current every day smoker Smoking Status: Current every day smoker tobacco type: e-cigarettes alcohol intake frequency: a few times a week Substance Use Type: marijuana Exam Narrative Exam Narrative: Const General:?cooperative, healthy appearing and comfortable [facility] Head:?normal to inspection Ears:?hearing grossly normal bilaterally Nose:?external nose normal Face and sinus:?normal facial exam and sinuses nontender Mouth:?oral mucosae normal Throat:?posterior oropharynx normal Eyes General:?appearance normal, both eyes and all related structures Neck Neck:?normal visual inspection and no lymphadenopathy noted Resp Effort & Inspection:?normal respiratory effort Auscultation:?clear to auscultation bilaterally Cardio Rate:?regular rate Rhythm:?regular rhythm Musculoskeletal No swelling, deformities, erythema of the left foot. Mild tenderness to palpation of the ball of the left foot. Neurovascularly intact. Patient is walking with a cane due to pain. Neuro General:?patient alert, patient awake and patient oriented x3 Initial Vital Signs Initial Vital Signs: Vital Signs Temperature 98 F 09/14/23 10:05 Pulse Rate 70 09/14/23 10:05 Respiratory Rate 16 09/14/23 10:05 Blood Pressure 139/76 09/14/23 10:05 Pulse Oximetry 97 09/14/23 10:05 Oxygen Delivery Method Room Air 09/14/23 10:05 Course Orders Ordered: ED Orders 09/14/23 10:08 XR foot LT min 3V Stat Vital Signs Vital signs: Vital Signs - 8 hr 09/14/23 12:48 Pulse Rate 56 L Respiratory Rate 16 Blood Pressure 138/73 Pulse Oximetry 100 Oxygen Delivery Method Room Air MDM - Extremity Injury (Lower) MDM Narrative Medical decision making narrative: 48-year-old male presents to the ED with 3 weeks of worsening left foot pain. X-ray was obtained to rule out fracture/dislocation. X-ray was without acute findings. Patient's symptoms most consistent with a musculoskeletal sprain/strain, plantar fasciitis. Recommend NSAIDs, rest, follow-up with aluminum container tester/PCP. ED return precautions discussed with patient. Patient verbalized understanding. Medical records reviewed: Yes Discharge Plan Departure Patient Disposition: Home Clinical Impression: Acute foot pain Qualifiers: Laterality: left Qualified Code(s): M79.672 - Pain in left foot Instructions: DI for Foot Pain Activity Restrictions/Additional Instructions: You were evaluated in the ED today for left foot pain. Your x-ray did not show any fractures or dislocations. Your symptoms could be due to a musculoskeletal sprain/strain of the foot due to increased activity or change in footwear. Please rest your foot, elevated above heart level. You may take ibuprofen or naproxen for pain and inflammation. Please follow-up with your PCP and aluminum container tester for further evaluation. Return to the ED if you have worsening symptoms, numbness, tingling, weakness. Prescriptions: No Action hydrocodone-acetaminophen 5-325 mg tablet 1 tab PO Q6H PRN (Reason: pain) Qty: 12 0RF chlorhexidine gluconate 0.12 % mouthwash 15 ml buccal DAILY Qty: 118 0RF Rx Instructions: swish and spit ibuprofen 600 mg tablet 600 mg PO Q6H PRN (Reason: fever or pain) Qty: 30 0RF prednisone 20 mg tablet 40 mg PO DAILY Qty: 8 0RF triamcinolone acetonide 0.5 % cream 1 applic topical BID Qty: 15 1RF Rx Instructions: to affected areas Referrals: ProviderMontserrat [Primary Care Provider] - Stand Alone Forms: Patient Portal/API
== END 2023-09-14 14:05 | disposition home or self-care (01) ==
PROVIDERS: Emergency Provider Student in an Organized Health Care Education/Training Program
DX: M79.672 Pain in left foot (principal)
CPT/HCPCS: 73630; 99281; 99282

== ENCOUNTER 2024-08-25 09:23 | Emergency (ER) | payer OTHER, SELFPAY ==
[2024-08-25 10:02] VITALS: BP 145/76; PULSE 64; RESP 16; TEMP 36.9; O2SAT 98; BMI 29.0
[2024-08-25 13:07] VITALS: BP 138/76; PULSE 60; RESP 16; TEMP 36.5; O2SAT 98
--- NOTE | 2024-08-25 13:52 | ED_ITS ---
HPI - Dental/Oral <Yumiko Reina PA-C - Last Filed: 08/25/24 17:22> General Chief complaint: Dental/Oral Stated complaint: Hard to swallow , pain on right side of face Time Seen by Provider: 08/25/24 13:22 Source: patient Mode of arrival: Ambulatory History of Present Illness HPI Narrative: Mr. Lane is a very pleasant 49-year-old gentleman with a past medical history of hypertension, hyperlipidemia who presents to the emergency department for right lower jaw pain and swelling since he woke up this morning. Patient states when he woke up he noticed on his right lower mandible he had a large area of swelling that is tender to the touch and he also has some discomfort difficulty swallowing solids. He denies sore throat, oropharyngeal swelling, fevers, chills, nausea, vomiting, flu-like symptoms, cough, ear pain, dental pain. He denies prior symptoms in the past. States that he has no problem swallowing saliva or liquids but he does have discomfort with swallowing solids. He does smoke marijuana, no other drug use, quit smoking cigarettes in June. Related Data Previous Rx's Medication Instructions Recorded chlorhexidine gluconate 0.12 % 15 ml buccal DAILY #118 mL 10/31/22 mouthwash hydrocodone 5 mg-acetaminophen 325 1 tab PO Q6H PRN pain #12 tabs 10/31/22 mg tablet ibuprofen 600 mg tablet 600 mg PO Q6H PRN fever or pain 10/31/22 #30 tabs prednisone 20 mg tablet 40 mg (2 x 20 mg) PO DAILY #8 tabs 06/24/23 triamcinolone acetonide 0.5 % 1 applic topical BID #15 grams 06/24/23 topical cream amoxicillin 875 mg-potassium 1 tab PO Q12H 10 days #20 tabs 08/25/24 clavulanate 125 mg tablet Allergies Allergy/AdvReac Type Severity Reaction Status Date / Time potassium Allergy Verified 06/24/23 16:44 Review of Systems <Yumiko Reina PA-C - Last Filed: 08/25/24 17:22> Review of Systems ROS Unobtainable: All systems reviewed & are unremarkable except as noted in HPI and below Patient History <Yumiko Reina PA-C - Last Filed: 08/25/24 17:22> tobacco type: e-cigarettes alcohol intake frequency: a few times a week Exam <Yumiko Reina PA-C - Last Filed: 08/25/24 17:22> Narrative Exam Narrative: GENERAL: 49 year old patient appears stated age. Well-developed patient, in no acute distress. HEAD: Atraumatic. Normocephalic. EYES: PERRL. Extraocular motions intact. No scleral icterus. No injection or drainage. ENT: 2 cm palpable area of swelling at the right mandibular angle. No overlying erythema or increased warmth. Nose without bleeding, purulent drainage. Throat with posterior oropharyngeal erythema, no tonsillar hypertrophy or exudates, uvula is midline, oropharynx is widely patent, submandibular region is soft. Patient has no dental tenderness or swelling of the buccal mucosa. NECK: Trachea midline. Cervical ROM intact. CARDIOVASCULAR: Regular rate and rhythm. RESPIRATORY: ?Nonlabored respirations. ?Speaking in clear, full sentences. ?Clear to auscultation. Breath sounds equal bilaterally. No wheezes, rales, or rhonchi. ? NEURO: AOx3. ?Clear speech. ?Moves all 4 extremities appropriately. SKIN: No rash or erythema of visible areas Initial Vital Signs Initial Vital Signs: Vital Signs Temperature 98.5 F 08/25/24 10:02 Pulse Rate 64 08/25/24 10:02 Respiratory Rate 16 08/25/24 10:02 Blood Pressure 145/76 H 08/25/24 10:02 Pulse Oximetry 98 08/25/24 10:02 Oxygen Delivery Method Room Air 08/25/24 10:02 <Nain Peres MD - Last Filed: 08/25/24 18:25> Initial Vital Signs Initial Vital Signs: Vital Signs Temperature 98.5 F 08/25/24 10:02 Pulse Rate 64 08/25/24 10:02 Respiratory Rate 16 08/25/24 10:02 Blood Pressure 145/76 H 08/25/24 10:02 Pulse Oximetry 98 08/25/24 10:02 Oxygen Delivery Method Room Air 08/25/24 10:02 Course <Yumiko Reina PA-C - Last Filed: 08/25/24 17:22> Orders Ordered: ED Orders 08/25/24 13:51 CT soft tissue neck w con Stat 08/25/24 14:05 CBC Auto Diff [Complete Blood Count AUTO DIFF] Stat CMP [Comprehensive Metabolic Panel] Stat 08/25/24 16:33 Strep Grp A by PCR Rapid Stat Discontinued Medications Amoxicillin/Clavulanate Potassium (Amoxicillin/Clav 875/125 Mg) 1 tab PO NOW ONE Stop: 08/25/24 15:51 Last Admin: 08/25/24 16:38 Dose: 1 tab Documented By: DARLENE Ketorolac Tromethamine (Ketorolac 30 Mg/Ml Vial) 15 mg IV NOW ONE Stop: 08/25/24 13:52 Last Admin: 08/25/24 14:08 Dose: 15 mg Documented By: DARLENE Vital Signs Vital signs: Vital Signs - 8 hr 08/25/24 13:07 08/25/24 16:55 Temperature 97.7 F 98 F Pulse Rate 60 66 Respiratory Rate 16 16 Blood Pressure 138/76 145/78 H Pulse Oximetry 98 98 Oxygen Delivery Method Room Air Room Air <Nain Peres MD - Last Filed: 08/25/24 18:25> Orders Ordered: ED Orders 08/25/24 13:51 CT soft tissue neck w con Stat 08/25/24 14:05 CBC Auto Diff [Complete Blood Count AUTO DIFF] Stat CMP [Comprehensive Metabolic Panel] Stat 08/25/24 16:33 Strep Grp A by PCR Rapid Stat Discontinued Medications Amoxicillin/Clavulanate Potassium (Amoxicillin/Clav 875/125 Mg) 1 tab PO NOW ONE Stop: 08/25/24 15:51 Last Admin: 08/25/24 16:38 Dose: 1 tab Documented By: DARLENE Ketorolac Tromethamine (Ketorolac 30 Mg/Ml Vial) 15 mg IV NOW ONE Stop: 08/25/24 13:52 Last Admin: 08/25/24 14:08 Dose: 15 mg Documented By: DARLENE Vital Signs Vital signs: Vital Signs - 8 hr 08/25/24 13:07 08/25/24 16:55 Temperature 97.7 F 98 F Pulse Rate 60 66 Respiratory Rate 16 16 Blood Pressure 138/76 145/78 H Pulse Oximetry 98 98 Oxygen Delivery Method Room Air Room Air MDM - Dental/Oral <Yumiko Reina PA-C - Last Filed: 08/25/24 17:22> Medical Records Attestation: I reviewed the patient's medical records. Lab Data 08/25/24 14:05 08/25/24 14:05 Labs: Lab Results 08/25/24 08/25/24 Range/Units 14:05 16:33 WBC 11.3 H (4.5-11.0) X10^3/uL RBC 4.36 L (4.5-5.9) X10^6/uL Hgb 13.5 (13.5-17.5) g/dL Hct 40.1 L (41-53) % MCV 91.9 (80-100) fL MCH 30.9 (26-34) PG MCHC 33.6 (30-36) % RDW 13.5 (11.6-14.8) % Plt Count 267 (150-400) X10^3/uL Neut % (Auto) 65.2 (50-75) % Lymph % (Auto) 24.2 L (25-40) % [place] % (Auto) 9.3 (3-14) % Eos % (Auto) 0.6 L (2-4) % Baso % (Auto) 0.7 (0-2) % Neut # (Auto) 7400 H (7400-9533) /uL Lymph # (Auto) 2700 (2592-4897) /uL [place] # (Auto) 1000 H (0-900) /uL Eos # (Auto) 100 (0-450) /uL Baso # (Auto) 100 (0-100) /uL Sodium 139 (137-145) mmol/L Potassium 4.7 (3.4-5.1) mmol/L Chloride 107 (98-107) mmol/L Carbon Dioxide 22 (22-32) mmol/L BUN 11 (9-20) mg/dL Creatinine 0.71 (0.66-1.25) mg/dL Estimated GFR > 60 (>60) mL/min BUN/Creatinine Ratio 15.5 (6-22) Glucose 94 (70-99) mg/dL Calcium 9.4 (8.4-10.2) mg/dL Total Bilirubin 0.5 (0.2-1.3) mg/dL AST 27 (17-59) IU/L ALT 30 (<50) IU/L Alkaline Phosphatase 54 (38-126) U/L Total Protein 8.4 H (6.3-8.2) g/dL Albumin 4.9 (3.5-5.0) g/dL Globulin 3.5 (1.7-4.1) g/dL Albumin/Globulin Ratio 1.4 (1.0-2.8) Group A Strep (PCR) Negative (Negative) Imaging Data CT Soft Tissue Neck: Radiologist's Impression: PROCEDURE: CT SOFT TISSUE NECK W CON INDICATIONS: right lower jaw pain and swelling TECHNIQUE: After the administration of intravenous contrast, 3.0 mm axial sections acquired from the sella to the aortic arch. Additional oblique axial 3.0 mm sections acquired through the pharynx. 3 mm thick coronal and sagittal reformats were generated. For radiation dose reduction, the following was used: automated exposure control. COMPARISON: None. FINDINGS: Image quality: Excellent. Lymph nodes: No enlarged lymph nodes seen throughout the neck. Vessels: Prominent right-sided lymph nodes, for example a right 2A lymph node measuring 1.1 cm in short axis (2/38). Neck spaces: A marker was placed on the right neck in the submandibular region. Deep to the marker is mild subcutaneous stranding and mild thickening of the platysma. No organized fluid collections. The oropharynx, nasopharynx, and pharynx demonstrate no mucosal lesions. The vocal cords, false vocal cords, pyriform sinuses, epiglottis, vallecula, and tongue base all appear normal. Glands: Mild heterogeneity of the inferior aspect of the right parotid gland (5/49). The left parotid and bilateral submandibular glands appear normal. Thyroid gland demonstrates no significant abnormality. Miscellaneous: Visualized brain and orbits appear normal. Lung apices demonstrate mild paraseptal emphysematous changes. Superficial soft tissues appear normal. Bones: No suspicious bony lesions. Visualized sinuses and mastoids appear unremarkable. Mild degenerative changes of the cervical spine. The IMPRESSION: Marker was placed on the right neck in the submandibular region. Deep to the marker there is fat stranding without organized fluid collection. There is mild heterogeneity of the right parotid gland which is just superior to this region, may represent infection or be reactive from adjacent inflammation. Findings are overall concerning for an infectious process. Prominent right-sided lymph nodes are noted, likely reactive. Dictated by: Eliud Trinh M.D. on 08/25/2024 at 15:01 Approved by: Eliud Trinh M.D. on 08/25/2024 at 15:22 [facility] Narrative Medical decision making narrative: 49-year-old gentleman with a past medical history of hypertension, hyperlipidemia who presents to the emergency department for right lower jaw pain and swelling since he woke up this morning. Differential diagnosis includes but isn't limited to lymphadenopathy, pharyngitis, dental abscess, odontogenic abscess, salivary duct obstruction, malignancy, etc. On exam patient is in no acute distress, nontoxic-appearing, all vital signs within normal limits, oropharynx widely patent. He does have swelling on the right submandibular angle region with no intraoral abnormalities except for some mild posterior oropharyngeal erythema. Submandibular region soft, oropharynx is patent. We will proceed with CT soft tissue neck IV contrast for further evaluation, we will treat symptoms with Toradol and obtain a CBC CMP. Labs reveal slightly elevated WBC count 11.3, normal hemoglobin 13.5, normal electrolytes and renal function BUN [address] reveals Marker was placed on the right neck in the submandibular region. Deep to the marker there is fat stranding without organized fluid collection. There is mild heterogeneity of the right parotid gland which is just superior to this region, may represent infection or be reactive from adjacent inflammation. Findings are overall concerning for an infectious process. Prominent right-sided lymph nodes are noted, likely reactive. Will treat patient with Augmentin BID x10 days for possible bacterial parotitis. First dose given in ED. Recommend NSAIDs, PCP follow up, strict ED return precautions. Pt verbalized understanding of all information, agreeable to plan, stable for discharge home. <Nain Peres MD - Last Filed: 08/25/24 18:25> Lab Data Labs: Lab Results 08/25/24 08/25/24 Range/Units 14:05 16:33 WBC 11.3 H (4.5-11.0) X10^3/uL RBC 4.36 L (4.5-5.9) X10^6/uL Hgb 13.5 (13.5-17.5) g/dL Hct 40.1 L (41-53) % MCV 91.9 (80-100) fL MCH 30.9 (26-34) PG MCHC 33.6 (30-36) % RDW 13.5 (11.6-14.8) % Plt Count 267 (150-400) X10^3/uL Neut % (Auto) 65.2 (50-75) % Lymph % (Auto) 24.2 L (25-40) % [place] % (Auto) 9.3 (3-14) % Eos % (Auto) 0.6 L (2-4) % Baso % (Auto) 0.7 (0-2) % Neut # (Auto) 7400 H (5921-9223) /uL Lymph # (Auto) 2700 (9013-8583) /uL [place] # (Auto) 1000 H (0-900) /uL Eos # (Auto) 100 (0-450) /uL Baso # (Auto) 100 (0-100) /uL Sodium 139 (137-145) mmol/L Potassium 4.7 (3.4-5.1) mmol/L Chloride 107 (98-107) mmol/L Carbon Dioxide 22 (22-32) mmol/L BUN 11 (9-20) mg/dL Creatinine 0.71 (0.66-1.25) mg/dL Estimated GFR > 60 (>60) mL/min BUN/Creatinine Ratio 15.5 (6-22) Glucose 94 (70-99) mg/dL Calcium 9.4 (8.4-10.2) mg/dL Total Bilirubin 0.5 (0.2-1.3) mg/dL AST 27 (17-59) IU/L ALT 30 (<50) IU/L Alkaline Phosphatase 54 (38-126) U/L Total Protein 8.4 H (6.3-8.2) g/dL Albumin 4.9 (3.5-5.0) g/dL Globulin 3.5 (1.7-4.1) g/dL Albumin/Globulin Ratio 1.4 (1.0-2.8) Group A Strep (PCR) Negative (Negative) Discharge Plan Departure Patient Disposition: Home Clinical Impression: Acute parotitis, LAD (lymphadenopathy) of right cervical region Instructions: DI for Parotitis-Adult Activity Restrictions/Additional Instructions: Dear Mr. Lane, Today you were evaluated for swelling of the right side of your jaw. CT scan revealed signs of infection and inflammation overlying your right parotid gland in addition to inflamed right-sided lymph nodes. We are treating you with antibiotics twice a day for 10 days. Please complete the full course of antibiotics, use ibuprofen and Tylenol if needed for pain, and follow up with your primary care doctor. Return to the emergency department if you develop fevers, difficulty swallowing, worsening of symptoms or any other concerns. Please take Ibuprofen (Motrin/Advil) or Acetaminophen (Tylenol) for pain. These are available over the counter. You may take Ibuprofen 600 mg every 8 hours with food for pain. You may also take Acetaminophen 650 mg every 4-6 hours for pain. Do not exceed 3000 mg of Tylenol a day as this can cause liver damage. Do not drink alcohol with either of these medications. Please follow up with your primary care doctor within the next 2-3 days for ER follow-up. (If you do not have a PCP you can call [phone]. ?to schedule an appointment with an [facility] Primary Care Provider) IF YOU DEVELOP ANY NEW OR WORSENING SYMPTOMS, RETURN TO THE ER! Please read the attached instructions, they highlight more specific treatments and interventions for you at home. Thank you for letting me participate in your care, Yumiko Reina PA-C Prescriptions: New amoxicillin-pot clavulanate 875-125 mg tablet 1 tab PO Q12H 10 Days Qty: 20 0RF No Action hydrocodone-acetaminophen 5-325 mg tablet 1 tab PO Q6H PRN (Reason: pain) Qty: 12 0RF chlorhexidine gluconate 0.12 % mouthwash 15 ml buccal DAILY Qty: 118 0RF Rx Instructions: swish and spit ibuprofen 600 mg tablet 600 mg PO Q6H PRN (Reason: fever or pain) Qty: 30 0RF prednisone 20 mg tablet 40 mg PO DAILY Qty: 8 0RF triamcinolone acetonide 0.5 % cream 1 applic topical BID Qty: 15 1RF Rx Instructions: to affected areas Referrals: ProviderMontserrat [Primary Care Provider] - Stand Alone Forms: Patient Portal/API/Survey ED Sign-out <Nain Peres MD - Last Filed: 08/25/24 18:25> Cosign ED Attending Abelature Attestation: I was immediately available in the department for consultation. This documentation has been reviewed and I agree with assessment and plan. Supervised by Nain Peres MD
[2024-08-25] MEDS: KETOROLAC 30 MG/ML VIAL 15 MG IV (14:08)
[2024-08-25 14:12] LABS: Add Manual Diff / Slide Review NO; Basophils Absolute Auto 100 /uL (0-100); Basophils Percent Auto 0.7 % (0-2); Eosinophils Absolute Auto 100 /uL (0-450); Eosinophils Percent Auto 0.6 % (2-4); Hematocrit 40.1 % (41-53); Hemoglobin 13.5 g/dL (13.5-17.5); Lymphocytes Absolute Auto 2700 /uL (1100-4500); Lymphocytes Percent Auto 24.2 % (25-40); Mean Corpuscular HGB Conc 33.6 % (30-36); Mean Corpuscular Hemoglobin 30.9 PG (26-34); Mean Corpuscular Volume 91.9 fL (80-100); Monocytes Absolute Auto 1000 /uL (0-900); Monocytes Percent Auto 9.3 % (3-14); Neutrophils Absolute Auto 7400 /uL (1500-7000); Neutrophils Percent Auto 65.2 % (50-75); Platelet Count 267 X10^3/uL (150-400); Red Blood Cell Count 4.36 X10^6/uL (4.5-5.9); Red Cell Distribution Width 13.5 % (11.6-14.8); White Blood Cell Count 11.3 X10^3/uL (4.5-11.0)
[2024-08-25 14:30] LABS: Alanine Aminotransferase 30 IU/L (<50); Albumin 4.9 g/dL (3.5-5.0); Albumin Globulin Ratio 1.4 (1.0-2.8); Alkaline Phosphatase 54 U/L (38-126); Aspartate Aminotransferase 27 IU/L (17-59); BUN Creatinine Ratio 15.5 (6-22); Bilirubin Total 0.5 mg/dL (0.2-1.3); Blood Urea Nitrogen 11 mg/dL (9-20); Calcium 9.4 mg/dL (8.4-10.2); Carbon Dioxide 22 mmol/L (22-32); Chloride 107 mmol/L (98-107); Estimated Glomerular Filt Rate > 60 mL/min (>60); Globulin 3.5 g/dL (1.7-4.1); Glucose 94 mg/dL (70-99); HEMOLYSIS < 15 (0-50); Potassium 4.7 mmol/L (3.4-5.1); Sodium 139 mmol/L (137-145); Total Protein 8.4 g/dL (6.3-8.2)
[2024-08-25] MEDS: AMOXICILLIN/CLAV 875/125 MG 1 TAB PO (16:38)
[2024-08-25 16:55] VITALS: BP 145/78; PULSE 66; RESP 16; TEMP 36.6; O2SAT 98
[2024-08-25 16:56] LABS: Strep Grp A by PCR Rapid Negative (Negative)
== END 2024-08-25 16:56 | disposition home or self-care (01) ==
PROVIDERS: Emergency Provider Physician Assistant
DX: K11.21 Acute sialoadenitis (principal); R59.0 Localized enlarged lymph nodes
CPT/HCPCS: 70491; 80053; 85025; 87651; 96374; 99284; J1885; Q9967